=== PATIENT | female | born 1970 ===

== ENCOUNTER 2019-08-21 07:55 | Outpatient (CLI) | payer OTHER | END 2019-08-21 07:57 | disposition home or self-care (01) | LOC: SONOGRAMA 07:55 | DX: E04.1 Nontoxic single thyroid nodule (principal) ==

== ENCOUNTER 2020-08-19 08:19 | Outpatient (CLI) | payer OTHER | END 2020-08-19 08:25 | disposition home or self-care (01) | LOC: SONOGRAMA 08:19 | PROVIDERS: ATTEND Pathology Anatomic Pathology & Clinical Pathology | DX: E04.2 Nontoxic multinodular goiter (principal) ==